=== PATIENT | female | born 1965 | race African-American/Black ===

== ENCOUNTER 2018-01-06 08:50 | Outpatient (CLI) | payer BC ==
--- NOTE | 2018-01-06 09:38 | XRay Report ---
CHEST TWO VIEWS: 01/06/18 08:50:00 CLINICAL: Preop cardiovascular clearance. COMPARISON: None FINDINGS: Normal heart and pulmonary vasculature.The The lungs are normally expanded and clear.Moderate degenerative changes in the spine. Fusion hardware in the lower cervical spine. IMPRESSION: No acute cardiopulmonary process. Moderate degenerative changes in the spine and fusion hardware of the lower cervical spine.
== END 2018-01-06 08:51 | disposition home or self-care (01) ==
LOC: SPVIMAG 08:50
PROVIDERS: ATTEND Internal Medicine
DX: Z01.818 Encounter for other preprocedural examination (principal); M47.892 Other spondylosis, cervical region
CPT/HCPCS: 71046